=== PATIENT | female | born 1950 | race Caucasian/White ===

== ENCOUNTER 2016-12-26 19:08 | Observation (INO) | payer OTHER, BC ==
[~2016-12-26] VITALS: Ht 160 cm; Wt 75.3 kg
[~2016-12-26 19:08] MED LIST: ASPIRIN81 M1 PO; ATROVENT 0.03%30 ML NS; BETHANECHOL CHL25 MG PO; BUPROPION XL150 MG PO; Calcium/Magnesium 50 PO; DELTASONE DOSEPA5 MG PO; DUONEB3 ML IH; EFFEXOR XR PO; EFFEXOR XR150 MG PO; EFFEXOR100 MG PO; EVENING PRIMRO500 MG PO; FLONASE16 GM NS; FORTAMET1000 M1 PO; Flonase BOTH NARES; GEMFIBROZIL600 MG PO; GLUCOPHAGE1000 MG PO; IPRATROPIU0.2 MG/1 M IH; LEVOXYL50 MCG PO; LIDODERM 5% P1 PATCH TD; Levothroid,Synthroid PO; Lopid PO; NASONEX17 GM BOTH NARES; PENTOPAK400 MG PO; PREDNISONE10 MG PO; PRILOSEC OTC20 MG PO; PRILOSEC2.5 MG PO; PriLOSEC PO; RAMIPRIL1.25 MG PO; SYNTHROID50 MCG PO; TRENtal PO; URECHOLINE25 MG PO; VOLTAREN 1% TP; Vitamin-E PO; WELLBUTRIN100 MG PO; Wellbutrin SR PO; XANAX2 MG PO; Xanax PO; [UNRECOGNIZED DRUG - OTHER] MC; [UNRECOGNIZED DRUG - OTHER] PO; predniSONE PO
[2016-12-26 19:47] LABS: HEMATOCRIT 42.7 % (36.0-46.0); MCH 28.2 PG (29.0-34.0); MCHC 31.9 G/DL (30.0-36.0); MCV 88.4 FL (83-99); MEAN PLAT.VOLUME 8.5 uM^3 (9.5-12.4); PLATELET COUNT 367 K/uL (156-360); RBC DIS.WIDTH-CV 16.1 % (11.8-14.6); RBC DIS.WIDTH-SD 51.5 % (39-53); RED BLOOD COUNT 4.83 M/uL (3.80-5.20); WHITE BLOOD COUNT 8.6 K/uL (4.1-10.2)
[2016-12-26 20:04] LABS: CHLORIDE 101 mEq/L (99-109); POTASSIUM 4.6 mEq/L (3.7-5.4); SODIUM 137 mEq/L (136-147)
[2016-12-26 20:06] LABS: GLUCOSE 113 mg/dL (70-99)
[2016-12-26 20:07] LABS: ANION GAP 13 MEQ/L (2-14)
[2016-12-26 20:10] LABS: GFR ESTIMATE (CALCULATED) 59 mL/min/
[2016-12-26 20:11] LABS: UREA NITROGEN (BUN) 18 mg/dL (9-23)
[2016-12-26 20:17] LABS: TROP-I INTERPRETATION NEGATIVE; TROPONIN-I < 0.01 ng/mL (0.0-0.30)
[2016-12-26 20:44] LABS: D-DIMER ELISA 0.77 mg/L FEU (< 0.57)
[2016-12-26] MEDS ORDERED: VITAMIN D35000 UNIT PO (21:43)
[2016-12-26] MEDS ORDERED: EFFEXOR XR150 MG PO (21:44)
[2016-12-26] MEDS ORDERED: TYLENOL ARTHRI650 MG PO (21:45)
[2016-12-26] MEDS ORDERED: PREDNISONE5 MG PO (21:45)
[2016-12-26] MEDS ORDERED: ABILIFY2 MG PO (21:46)
[2016-12-26] MEDS ORDERED: PRILOSEC20 MG PO (21:46)
[2016-12-26] MEDS ORDERED: PROAIR HFA8.5 GM IH (21:46)
[2016-12-26] MEDS ORDERED: LO-DOSE ASPIRIN81 M2 PO (21:47)
[2016-12-26] MEDS ORDERED: ATIVAN0.5 MG PO (21:47)
[2016-12-26] MEDS ORDERED: LIPITOR10 MG PO (21:48)
[2016-12-26] MEDS ORDERED: B-COMPLEX-VITA1 EACH PO (21:49)
[2016-12-26] MEDS ORDERED: URECHOLINE25 MG PO (21:49)
[2016-12-26] MEDS ORDERED: WELLBUTRIN XL150 MG PO (21:50)
[2016-12-26] MEDS ORDERED: COLCRYS0.6 MG PO (21:53)
[2016-12-26] MEDS ORDERED: VOLTAREN 1% GE100 GM TP (21:55)
[2016-12-26] MEDS ORDERED: FEOSOL325 MG PO (21:56)
[2016-12-26] MEDS ORDERED: FOLIC ACID1 MG PO (21:56)
[2016-12-26] MEDS ORDERED: SIMPONI100 MG/1 M SC (21:57)
[2016-12-26] MEDS ORDERED: LEVBID0.375 MG PO (21:59)
[2016-12-26] MEDS ORDERED: IPRATROPIUM BRO30 ML BOTH NARES (22:02)
[2016-12-26] MEDS ORDERED: COMBIVENT RESPIM4 GM IH (22:05)
[2016-12-26] MEDS ORDERED: DUONEB 2.5-0.5 M3 ML AEROSOL (22:06)
[2016-12-26] MEDS ORDERED: LEVO-T50 MCG PO ×2 (22:07→22:08)
[2016-12-26] MEDS ORDERED: VICTOZA0.6 MG/0.1 SC (22:10)
[2016-12-26] MEDS ORDERED: LIDOCAINE700 MG TD (22:10)
[2016-12-26] MEDS ORDERED: GLUCOPHAGE1000 MG PO (22:11)
[2016-12-26] MEDS ORDERED: LYRICA25 MG PO (22:11)
[2016-12-26] MEDS ORDERED: METHOTREXATE2.5 MG PO (22:12)
[2016-12-26] MEDS ORDERED: NASONEX17 GM BOTH NARES (22:13)
[2016-12-27 01:07] VITALS: BP 131/60
[2016-12-27 02:47] LABS: TROP-I INTERPRETATION NEGATIVE; TROPONIN-I < 0.01 ng/mL (0.0-0.30)
[2016-12-27 05:00] VITALS: BP 117/57
[2016-12-27 07:50] VITALS: BP 125/60
[2016-12-27 09:15] LABS: FASTING STATUS NONFASTING
[2016-12-27 09:21] LABS: HEMATOCRIT 42.5 % (36.0-46.0); MCH 28.1 PG (29.0-34.0); MCHC 30.6 G/DL (30.0-36.0); MCV 91.8 FL (83-99); MEAN PLAT.VOLUME 8.9 uM^3 (9.5-12.4); PLATELET COUNT 382 K/uL (156-360); RBC DIS.WIDTH-CV 16.4 % (11.8-14.6); RBC DIS.WIDTH-SD 54.2 % (39-53); RED BLOOD COUNT 4.63 M/uL (3.80-5.20); WHITE BLOOD COUNT 7.3 K/uL (4.1-10.2)
[2016-12-27 09:54] LABS: ALKALINE PHOSPHATASE 111 IU/L (3-129); ANION GAP 11 MEQ/L (2-14); CHLORIDE 102 MEQ/L (99-109); GFR ESTIMATE (CALCULATED) > 59 mL/min/; GLUCOSE 89 mg/dL (70-99); HDL CHOLESTEROL 61 MG/DL (Desirable>=50); NON-HDL CHOLESTEROL 145 mg/dL (Desirable<160); SAMPLE HEMOLYSIS CHECK 0; SAMPLE ICTERIC CHECK 0; SAMPLE LIPEMIA CHECK 0; SODIUM 140 MEQ/L (136-147); TOTAL BILIRUBIN 0.4 MG/DL (0.0-1.0); TOTAL CHOLESTEROL 206 mg/dL (Desirable<200); TRIGLYCERIDES 462 MG/DL (Normal: <150); UREA NITROGEN (BUN) 14 mg/dL (9-23)
[2016-12-27 09:56] LABS: TROP-I INTERPRETATION NEGATIVE; TROPONIN-I < 0.01 ng/mL (0.0-0.30)
[2016-12-27 10:31] LABS: Estimated Average Glucose 137 mg/dL (70-123); HEMOGLOBIN A1c (GLYCOHEMOGLOB) 6.4 % HGB (Below 5.7)
[2016-12-27 12:16] VITALS: BP 115/61
== END 2016-12-27 16:19 | disposition home or self-care (01) ==
LOC: EME 19:08 → EDOF 22:43 → 5WEST 22:43 → EDOF 12-27 00:58 → 5WEST 12-27 01:00
PROVIDERS: Emergency Medicine; Internal Medicine
DX: R07.89 Other chest pain (principal); F41.9 Anxiety disorder, unspecified; K21.9 Gastro-esophageal reflux disease without esophagitis; Z91.041 Radiographic dye allergy status; E03.9 Hypothyroidism, unspecified; E11.42 Type 2 diabetes mellitus with diabetic polyneuropathy; E78.5 Hyperlipidemia, unspecified; F32.9 Major depressive disorder, single episode, unspecified; M79.7 Fibromyalgia; M06.9 Rheumatoid arthritis, unspecified; Z79.82 Long term (current) use of aspirin; Z88.0 Allergy status to penicillin; Z88.2 Allergy status to sulfonamides; D86.9 Sarcoidosis, unspecified; M10.9 Gout, unspecified
CPT/HCPCS: 71020; 78582; 80048; 80053; 80061; 83036; 84484; 85027; 85379; 93005; 93306; 99202; 99281; 99284; A9540; A9567; G0378; J1650; J7030; J7512

== ENCOUNTER 2017-04-24 12:31 | Emergency (ER) | payer OTHER, BC ==
[~2017-04-24] VITALS: Ht 161.3 cm; Wt 72.0 kg
[~2017-04-24 12:31] MED LIST changes: +ABILIFY2 MG PO; +ATIVAN0.5 MG PO; +COLCRYS0.6 MG PO; +COMBIVENT RESPIM4 GM IH; +DUONEB 2.5-0.5 M3 ML AEROSOL; +FEOSOL325 MG PO; +FOLIC ACID1 MG PO; +IPRATROPIUM BRO30 ML BOTH NARES; +LEVBID0.375 MG PO; +LEVO-T50 MCG PO; +LIDOCAINE700 MG TD; +LIPITOR10 MG PO; +LO-DOSE ASPIRIN81 M2 PO; +LYRICA25 MG PO; +METHOTREXATE2.5 MG PO; +PREDNISONE5 MG PO; +PRILOSEC20 MG PO; +PROAIR HFA8.5 GM IH; +SIMPONI100 MG/1 M SC; +TYLENOL ARTHRI650 MG PO; +VICTOZA0.6 MG/0.1 SC; +VITAMIN B-122000 MC1 PO; +VITAMIN D35000 UNIT PO; +VOLTAREN 1% GE100 GM TP; +WELLBUTRIN XL150 MG PO
[2017-04-24 14:09] LABS: MCH 28.6 PG (29.0-34.0); MCHC 31.5 G/DL (30.0-36.0); MCV 90.9 FL (83-99); RBC DIS.WIDTH-CV 15.5 % (11.8-14.6); RED BLOOD COUNT 4.51 M/uL (3.80-5.20); WHITE BLOOD COUNT 9.2 K/uL (4.1-10.2)
[2017-04-24 14:10] LABS: PLATELET COUNT 272 K/uL (156-360)
[2017-04-24 14:32] LABS: CHLORIDE 103 mEq/L (99-109); POTASSIUM 3.6 mEq/L (3.7-5.4); SODIUM 137 mEq/L (136-147)
[2017-04-24 14:34] LABS: GLUCOSE 84 mg/dL (70-99)
[2017-04-24 14:35] LABS: ANION GAP 9 MEQ/L (2-14)
[2017-04-24 14:36] LABS: TOTAL BILIRUBIN 0.4 mg/dL (0.0-1.0)
[2017-04-24 14:37] LABS: ALKALINE PHOSPHATASE 85 IU/L (3-129)
[2017-04-24 14:38] LABS: GFR ESTIMATE (CALCULATED) > 59 mL/min/
[2017-04-24 14:39] LABS: UREA NITROGEN (BUN) 11 mg/dL (9-23)
[2017-04-24 22:36] VITALS: BP 99/69
== END 2017-04-24 22:42 | disposition short-term general hospital (02) ==
LOC: EME 12:31
PROVIDERS: Emergency Medicine
DX: S72.092A Other fracture of head and neck of left femur, initial encounter for closed fracture (principal); S40.012A Contusion of left shoulder, initial encounter; W18.30XA Fall on same level, unspecified, initial encounter; Y92.008 Other place in unspecified non-institutional (private) residence as the place of occurrence of the external cause; M25.572 Pain in left ankle and joints of left foot; E87.6 Hypokalemia; E11.40 Type 2 diabetes mellitus with diabetic neuropathy, unspecified; Z79.84 Long term (current) use of oral hypoglycemic drugs; I10 Essential (primary) hypertension; K21.9 Gastro-esophageal reflux disease without esophagitis; K22.70 Barrett's esophagus without dysplasia; M06.9 Rheumatoid arthritis, unspecified; D86.89 Sarcoidosis of other sites; M19.90 Unspecified osteoarthritis, unspecified site; Z96.653 Presence of artificial knee joint, bilateral; Z88.0 Allergy status to penicillin
CPT/HCPCS: 70450; 72040; 72125; 72192; 73000; 73030; 73502; 73590; 73610; 80053; 85027; 86850; 86900; 86901; 93005; 99281; 99285; J2270; J2405

== ENCOUNTER → 2017-08-28 | Outpatient (CLI) | payer OTHER, BC | END | disposition home or self-care (01) | LOC: NUC 13:30 | DX: G90.511 Complex regional pain syndrome I of right upper limb (principal); M19.042 Primary osteoarthritis, left hand; M19.032 Primary osteoarthritis, left wrist | CPT/HCPCS: 78315; 78999; A9503 ==

== ENCOUNTER 2017-10-22 17:14 | Emergency (ER) | payer OTHER, BC ==
[~2017-10-22] VITALS: Ht 160 cm; Wt 81.3 kg
[2017-10-22] MEDS ORDERED: POLYTRIM EYE DR10 ML BOTH EYES (20:51)
[2017-10-22 21:00] VITALS: BP 135/79
== END 2017-10-22 21:16 | disposition home or self-care (01) ==
LOC: EME 17:14
DX: F33.2 Major depressive disorder, recurrent severe without psychotic features (principal); F41.0 Panic disorder [episodic paroxysmal anxiety]; J06.9 Acute upper respiratory infection, unspecified; E11.9 Type 2 diabetes mellitus without complications; K21.9 Gastro-esophageal reflux disease without esophagitis; M06.9 Rheumatoid arthritis, unspecified; M19.90 Unspecified osteoarthritis, unspecified site; Z79.84 Long term (current) use of oral hypoglycemic drugs; Z79.82 Long term (current) use of aspirin; Z88.2 Allergy status to sulfonamides; Z88.1 Allergy status to other antibiotic agents; Z88.0 Allergy status to penicillin; Z91.041 Radiographic dye allergy status
CPT/HCPCS: 71046; 90839; 93005; 94640; 99281; 99284; J7512